=== PATIENT | male | born 1990 | race Two or more races ===

== ENCOUNTER 2023-05-14 21:36 | Emergency (ER) | payer MEDICAID, OTHER ==
[~2023-05-14] VITALS: Ht 172.7 cm; Wt 71.9 kg
[2023-05-14 21:45] VITALS: BP 125/81; RESP 20; O2SAT 100
[2023-05-14 22:04] VITALS: PULSE 119
[2023-05-14 23:15] LABS: Hemoglobin 14.7 g/dL (13.5-17.5); Mean Corpuscular Hemoglobin 30.8 pg (28.0-32.0); Mean Corpuscular Hgb Conc. 34.2 g/dL (32.0-36.0); Red Blood Cells 4.78 10^6/uL (4.5-5.90); Red Cell Distribution Width 13.4 % (11.8-14.3); White Blood Cell 4.7 10^3/uL (4.4-10.8)
[2023-05-14 23:18] LABS: Band Neutrophils % (manual) 0; Basophils % (manual) 0 (0.0-2.0); Blast Cells 0; Metamyelocytes % 0; Myelocytes % 0; Promyelocytes % 0; Reactive Lymphocytes 0
[2023-05-14 23:26] LABS: INR 1.03 (0.9-1.15); Partial Thromboplastin Time 33.7 SEC (24.5-34.5); Prothrombin Time 10.8 sec (9.3-11.8)
[2023-05-14 23:30] LABS: Lymphocytes % (manual) 26 (10.0-50.0)
[2023-05-14 23:31] LABS: Eosinophils % (manual) 2 (0-7); Monocytes % (manual) 14 (0-12); Platelet Estimate Adequate
[2023-05-14 23:32] LABS: Alanine Aminotransferase 17 U/L (7-40); Albumin 4.6 g/dL (3.2-4.8); Alkaline Phosphatase 89 U/L (46-116); Anion Gap 7.2 (5-15); Aspartate Aminotransferase 53 U/L (13-40); BUN/Creatinine Ratio 7.2 (10.0-20.0); Blood Urea Nitrogen 6 mg/dL (9-23); Carbon Dioxide 26.8 mmol/L (20-30); Chloride 105 mmol/L (98-107); Glucose 93 mg/dL (74-106); Magnesium 1.9 mg/dL (1.6-2.6); Potassium 3.9 mmol/L (3.5-5.1); Sodium 139 mmol/L (136-145)
[2023-05-14 23:33] LABS: Bilirubin, Total 0.3 mg/dL (0.2-1.0); Total Protein 7.1 g/dL (5.7-8.2)
== END 2023-05-14 23:07 | disposition left against medical advice (07) ==
LOC: ER 21:39
DX: R51.9 Headache, unspecified (principal); R06.02 Shortness of breath; R50.9 Fever, unspecified; R11.2 Nausea with vomiting, unspecified; R07.89 Other chest pain; R19.7 Diarrhea, unspecified; Z53.21 Procedure and treatment not carried out due to patient leaving prior to being seen by health care provider
CPT/HCPCS: 36415; 70450; 71045; 80053; 83735; 83880; 84484; 85007; 85027; 85610; 85730; 93005